=== PATIENT | female | born 1955 ===

== ENCOUNTER 2019-12-02 21:10 | Outpatient (REF) | payer OTHER, SELFPAY ==
[2019-12-02 19:54] LABS: HCT 43.1 % (36.0-46.0); HGB 14.3 g/dL (12.0-15.5); Mean Corp. HGB Concentration 33.2 g/dL (32.0-36.0); Mean Corpuscular Hemoglobin 31.6 pg (27.0-33.0); Mean Corpuscular Volume 95.4 fL (80-95); Mean Platelet Volume 10.8 fL (8.0-11.0); Platelet Count 298 x1000/uL (130-400); RBC 4.52 m/cumm (4.00-5.20); RBC Distribution Width 12.8 % (11.7-14.6); White Blood Cell Count 6.19 k/cumm (4.4-10.8)
[2019-12-02 20:20] LABS: Anion Gap 9.6 mmol/L (3-11); BUN 16 mg/dL (7-18); CO2 26.4 mmol/L (21.0-32.0); CREATININE 1.04 mg/dL (0.55-1.02); Calcium 9.1 mg/dL (8.5-10.1); Calculated LDL 153 mg/dL (<100); Chloride 105 mmol/L (98-107); Cholesterol 242 mg/dL (<200); Estimated GFR 53.52 (mL/min/1.73m2); Glucose 118 mg/dL (74-106); HDL Cholesterol 47 mg/dL (40-60); Potassium 4.6 mmol/L (3.5-5.1); Sodium 141 mmol/L (136-145); TSH 2.69 uIU/mL (0.36-3.74); Triglyceride 210 mg/dL (<150)
[2019-12-02 20:34] LABS: Vitamin D 25 Total 52.3 ng/ml (30-100)
== END 2019-12-02 21:30 ==
LOC: NCHCN 21:10
PROVIDERS: PCP Family Medicine; Visit Provider Family Medicine
DX: E78.5 Hyperlipidemia, unspecified (principal); E66.9 Obesity, unspecified; R73.03 Prediabetes
CPT/HCPCS: 80048; 80061; 82306; 85027; 84443

== ENCOUNTER 2021-03-22 15:52 | Outpatient (REF) | payer OTHER, SELFPAY ==
[2021-03-23 08:23] LABS: BUN 17 mg/dL (7-18); CREATININE 1.1 mg/dL (0.55-1.02); Calcium 9.2 mg/dL (8.5-10.1); Estimated GFR 50.01 (mL/min/1.73m2); Glucose 150 mg/dL (74-106)
[2021-03-23 08:24] LABS: Alkaline Phosphatase 118 U/L (46-116); Bilirubin, Total 0.3 mg/dL (0.2-1.0); Calculated LDL 128 mg/dL (<100); Chloride 105 mmol/L (98-107); Cholesterol 245 mg/dL (<200); HDL Cholesterol 47 mg/dL (40-60); Potassium 4.4 mmol/L (3.5-5.1); Sodium 143 mmol/L (136-145); Total Protein 7.2 g/dL (6.4-8.2); Triglyceride 352 mg/dL (<150)
[2021-03-23 08:25] LABS: ALT 26 U/L (14-59); AST 15 U/L (15-37); Anion Gap 13.1 mmol/L (3-11); CO2 24.9 mmol/L (21.0-32.0)
== END 2021-03-22 15:53 | disposition home or self-care (01) ==
LOC: NCHCN 15:52
PROVIDERS: PCP Family Medicine; Visit Provider Family Medicine
DX: E78.5 Hyperlipidemia, unspecified (principal); E66.9 Obesity, unspecified
CPT/HCPCS: 80053; 80061